=== PATIENT | female | born 1980 | race African-American/Black ===

== ENCOUNTER → 2019-04-21 | Outpatient (CLI) | payer OTHER ==
--- NOTE | 2019-04-21 09:36 | RAD ---
Ultrasound-guided fine-needle aspiration of the thyroid gland History: Bilateral thyroid nodules. Prominent 3.2 cm nodule of the lower pole of the right lobe seen on outside thyroid imaging study performed at diagnostic imaging centers. Procedure: The patient provided both verbal and written consent after the procedure and possible complications including bleeding and infection were explained. A timeout was performed which confirmed the name of the patient and the date of and the type of procedure and the side of the procedure. Allergies to medications were reviewed. Sonography of the thyroid gland was performed and an appropriate skin abdiel was made overlying a 3.3 cm solid nodule of the lower pole of the right lobe. The anterior aspect of the right side of the neck was prepped and draped in the usual sterile fashion with ChloraPrep. A total of 4 cc of 1% lidocaine was utilized for local anesthesia. Using sterile technique and ultrasound guidance, 4 separate 25-gauge fine-needle aspirations of the 3.3 cm solid nodule of the lower pole solid nodule of the right lobe of the thyroid gland were performed. Sonographic spot images were performed. These aspirations were processed on slides by a manager creative services. The specimens were sent to laboratory for further processing and evaluation. Hemostasis was deemed adequate after 3 minutes of manual pressure. Post procedure sonography demonstrated no significant hematoma. The patient tolerated the procedure well without complication. Sterile Band-Aid was applied to right side of the neck. The patient was given instructions to return to the emergency room if there is significant swelling or bleeding in the neck. The patient was instructed to take Tylenol for any discomfort and to apply ice to the right side of the neck for any swelling. Impression: Ultrasound-guided fine-needle aspiration biopsy of the 3.3 cm solid nodule of the lower pole of the right lobe of the thyroid gland was performed without complication. Follow-up will be with the patient's physician. Electronically signed by: Spenser Parham MD (04/21/2019 9:33 AM) [facility]
--- NOTE | 2019-04-27 17:06 | PATHOLOGY ---
Note [facility] Accession Number: [id number] TESTS RESULT FLAG UNITS REF RANGE LAB Clinician Provided Cytology Information No. of containers..01 Other (Miscellaneous) Source: RT THYROID NODULE DIAGNOSIS: RT THYROID NODULE NEGATIVE FOR MALIGNANT CELLS. BETHESDA CATEGORY II. SPECIMEN CONSISTS OF THYROID FOLLICULAR CELLS IN A MACROFOLLICULAR ARRANGEMENT, FEW HURTHLE CELLS, AND COLLOID. FAVOR BENIGN ADENOMATOID NODULE. THE CASE IS ALSO EXAMINED BY DR. MIRIAM PERAZA, WHO CONCURS WITH THE DIGNOSIS. THIS INTERPRETATION INCLUDES EVALUATION OF A CELL BLOCK. Pathologist ICD10: 02 E04.1 Signed out by: Xiang Boateng MD, Pathologist NPI- [id number] Performed by: Bobbi Hsu, Administrative Assistant Receptionist ([facility]) Gross description: 30 ML, SULEMA, CLOUDY /LCS 06/13/1840 0000 Local FLAG LEGEND: L-Low Normal,H-High Normal,LL-Alert Low,HH-Alert High <-Panic Low,>-Panic High,A-Abnormal,AA-Critical Abnormal Performed at: [facility] [address] [place] [address] Raúl Melendrez MD, [address] [facility] [address] [place] [address] Xiang Boateng MD, Specimen Comment: A courtesy copy of this report has been sent to [phone], [phone]- Specimen Comment: [id number], Specimen Comment: Report sent to ,DR LAZO / DR ARVIZU Performed at: [address], [place], [place] [id number] MD Raúl Melendrez MD Phone: [phone]
== END | disposition home or self-care (01) ==
LOC: US 07:58
PROVIDERS: ATTEND Surgery
DX: E04.1 Nontoxic single thyroid nodule (principal)
CPT/HCPCS: 10005; 88173; 88305; C1713; 19081; 76942

== ENCOUNTER → 2020-01-02 | Outpatient (CLI) | payer OTHER ==
--- NOTE | 2020-01-02 13:57 | RAD ---
EXAM: ULTRASOUND-GUIDED THYROID FINE-NEEDLE ASPIRATION. HISTORY: Left thyroid nodule. Ultrasound-guided biopsy is requested. FINDINGS: The procedure along with its risks and benefits were explained to the patient. She agreed to proceed. A timeout procedure was performed. Sonographic images of the thyroid gland were obtained. The solid target nodule in the left lobe anteriorly was adequately visualized for biopsy. The overlying skin was sterilely prepped and infiltrated with 1% lidocaine for local anesthesia. Under ultrasound guidance, 4 aspirates were obtained using 25-gauge needles. These were hand delivered to pathology who determined them adequate for diagnosis. A sterile dressing was placed. There were no immediate complications. IMPRESSION: 1. Successful ultrasound-guided fine-needle aspiration of the left thyroid nodule. Electronically signed by: Britt Lubin MD (01/02/2020 1:54 PM) [id number]
== END | disposition home or self-care (01) ==
LOC: US 12:06
PROVIDERS: ATTEND Surgery
DX: E04.1 Nontoxic single thyroid nodule (principal)
CPT/HCPCS: 10005; 60300; 76942; 88173; 88305

== ENCOUNTER → 2021-04-10 | Outpatient (CLI) | payer OTHER ==
--- NOTE | 2021-04-10 11:47 | KCIC ---
EXAM: Thyroid sonogram. HISTORY: Thyroid nodules. TECHNIQUE: Sonographic imaging of the thyroid was performed. COMPARISON: 01/02/2020 and 04/21/2019. FINDINGS: The right thyroid lobe measures 6.6 x 3.0 x 2.2 cm. The left thyroid lobe measures 5.7 x 1. 9 x 1.8 cm. The thyroid isthmus measures 3.5 mm. The thyroid parenchyma is diffusely heterogeneous. T here are multiple thyroid nodules. For reference purposes, the largest thyroid nodule is seen within the inferior right thyroid lobe. Th is is solid and heterogeneous and hypoechoic with a wider than tall morphology and smooth margins, me asuring 3.5 x 3.4 x 2.3 cm. The second largest nodule is seen within the superior left thyroid lobe. This is solid and heterogene ous and hypoechoic with a wider than tall morphology and indistinct margins, measuring 1.5 x 1.1 x 1. 1 cm. The third largest nodule is seen within the mid right thyroid lobe. This is solid and heterogeneous a nd hypoechoic with wider than tall morphology and indistinct margins, measuring 10 x 9 x 8 mm. The ad ditional nodules and cysts are subcentimeter in size. IMPRESSION: 1. Dominant nodule within the inferior right thyroid lobe measuring 3.5 cm. TI-RADS Category 4. This is slightly increased compared to the prior studies. Correlate with pathology findings corresponding with fine-needle aspiration of this lesion performed 04/21/2019. 2. 1.5 cm nodule within the superior left thyroid lobe. TI-RADS Category 4. This is not appreciably c hanged compared to a sonogram performed during fine-needle aspiration on 01/02/2020. Correlate with pa thology findings. 3. Multiple additional thyroid nodules, the largest of which measuring 10 mm within the mid right thy roid lobe is slightly increased compared to the prior exam.TI-RADS Category 4: Sonographic follow-up is recommended for category 4 nodules of this size. 4. Heterogeneous enlarged thyroid. Electronically signed by: Nithya Alcantar MD (04/10/2021 11:45 AM) [id number]
== END ==
LOC: KCIC US 10:50
PROVIDERS: ATTEND Nurse Practitioner
DX: E04.2 Nontoxic multinodular goiter (principal)
CPT/HCPCS: 76536